=== PATIENT | male | born 2000 | race Caucasian/White ===

== ENCOUNTER 2019-02-14 06:09 | Day surgery (SDC) | payer OTHER ==
[2019-02-13 14:53] VITALS: BMI 33.9
[~2019-02-14] VITALS: Ht 177.8 cm; Wt 107.2 kg
[2019-02-14] VITALS (11 sets, daily range): BP systolic 120–144; BP diastolic 65–79; PULSE 62–83; RESP 13–20; Ht 177.8 cm; Wt 107.2 kg
[2019-02-14] MEDS ORDERED: CEFAZOLIN 2 GM/50 ML (PMX) 50 ML IVPB SCH (06:30)
[2019-02-14] MEDS ORDERED: LACTATED RINGER'S 1,000 ML IV SCH (07:00)
--- NOTE | 2019-02-14 07:29 | PREAC ---
Date/Time of Note Date/Time of Note DATE: 02/14/19 TIME: 07:28 Anesthesia Eval and Record Evaluation Time Pre-Procedure Interview DATE: 02/14/19 TIME: 07:28 Age 18 Sex male NPO: 8 hrs Preoperative diagnosis Right hand mass Planned procedure Excision of mass Past Medical History Past Medical History: Includes GI: Obesity Surgery & Anesthesia Issues No known issue Meds Anticoagulation: No Beta Enma within 24 hr: No Reason Beta Enma not given: Pt. not on B-Enma No Active Prescriptions or Reported Meds Current Medications Cefazolin Sodium/ Dextrose 50 ml @ 100 mls/hr PREOP IVPB ; Start 02/14/19 at 06:30; Stop 02/14/19 at 16:00 Lactated Ringer's 1,000 ml @ 20 mls/hr Q24H IV Last administered on 02/14/19at 07:17; Admin Dose 20 MLS/HR; Start 02/14/19 at 07:00 Meds reviewed: Yes Allergies Coded Allergies: No Known Allergy (Unverified , 02/14/19) Allergies Reviewed: Yes Labs/Studies Labs Reviewed: Reviewed by anesthesiologist test: N/A Pre-procedure Exam Last vitals Vital Signs Date Temp Pulse Resp B/P (MAP) Pulse Ox O2 O2 Flow FiO2 Time Delivery Rate 02/14/19 83 20 140/70 97 06:58 (93) Airway: Adequate mouth opening Mallampati: Mallampati II Teeth: Normal Lung: Normal Heart: Normal ASA Physical Status ASA physical status: 2 Emergency: None Planned Anesthetic General/MAC: MAC Planned Pain Management Parenteral pain med Pre-operative Attestations Prior to commencing anesthesia and surgery, the patient was re-evaluated, there was verification of: *The patient's identity *The results of appropriate recent lab work and preoperative vital signs *The above evaluation not changing prior to induction *Anesthetic plan, risk benefits, alternative and complications discussed with patient/family; questions answered; patient/family understands, accepts and wishes to proceed. HARLAN FIELD MD Feb 14, 2019 07:29
[2019-02-14] MEDS ORDERED: BUPIVACAINE 0.25% (MPF) 30 ML INJ ONE (08:10)
[2019-02-14] MEDS ORDERED: PROPOFOL 0 ML ONE (08:17)
[2019-02-14] MEDS ORDERED: MIDAZOLAM 1 MG/ML 2 ML INJ ONE (08:19)
[2019-02-14] MEDS ORDERED: FENTAnyl 50 MCG/ML VIAL ONE (08:19)
--- NOTE | 2019-02-14 08:54 | OPR ---
Date/Time of Note Date/Time of Note DATE: 02/14/19 TIME: 08:47 Operative Report Preoperative Diagnosis Right thenar hand mass Postoperative Diagnosis Right thenar hand mass Operation/Procedure Performed Right thenar hand mass excision Surgeon see signature line Academic Services Coordinator None Anesthesia Type: MAC Anesthesiologist: HARLAN FIELD MD Estimated Blood Loss: minimal Transfusion none Specimen hand mass Grafts/Implants none Complications none Pt Condition Post Procedure: stable Disposition: PACU Indications Patient is a 18-year-old male who has a right thenar hand mass for 6 months. He denies any trauma. He elects to get the mass excised. We discussed that this could be either a inclusion cyst or other benign mass. He understands the risks of surgery which include but are not limited to those infection, pain, bleeding, neurovascular injury, stiffness, recurrence and other anesthesia related risks. He elects to proceed. Procedure Description Patient was identified in preoperative holding area. Upper extremity was marked. He was brought back to operating room. He is placed supine light IV sedation was administered. A nonsterile tourniquet was applied to the right arm. Timeout was performed indicating correct patient site and procedure. Local injection of 0.25% Marcaine was injected in the thumb for a local block. The right arm was then prepped and draped in usual sterile fashion. Arm was exsanguinated Esmarch and tourniquet was elevated to 250 minutes mercury. A longitudinal incision was established over the mass which was approximately 1 x 1 cm. Skin was incised sharply. Skin flaps were bluntly elevated. A round soft tissue mass was encountered. It did not look like a cyst. This was carefully dissected free from the surrounding soft tissue. There was no stalk visualized. The mass was shelled out fairly easily. It was then set aside for pathology for permanent analysis. The wound was then irrigated. Tourniquet was released. Hemostasis was achieved with Bovie cautery. Skin was closed with interrupted 5-0 nylon suture. The wound was dressed with Adaptic, 4 x 4 gauze, Julien and Johnny bandage. There is brisk capillary refill and all sponge and instrument counts were correct and the case. Patient was awoken from anesthesia and taken to PACU stable condition. Plan: Sutures will be removed at two weeks. He will begin immediate hand range of motion. MAC YBARRA MD Feb 14, 2019 08:54
[2019-02-14] MEDS ORDERED: MEPERIDINE 25 MG INJ IV PRN (09:00)
[2019-02-14] MEDS ORDERED: METOCLOPRAMIDE 10 MG INJ IV PRN (09:00)
[2019-02-14] MEDS ORDERED: MIDAZOLAM 1 MG/ML 2 ML INJ IV PRN (09:00)
[2019-02-14] MEDS ORDERED: ONDANSETRON 4 MG INJ IV PRN (09:00)
[2019-02-14] MEDS ORDERED: OXYCODONE/ACETAMINOPHEN (5/325) TAB PO PRN ×2 (09:00)
[2019-02-14] MEDS ORDERED: DIPHENHYDRAMINE 50 MG INJ IV PRN (09:00)
[2019-02-14] MEDS ORDERED: FENTAnyl 50 MCG/ML VIAL IV PRN ×3 (09:00)
--- NOTE | 2019-02-14 09:55 | PAC ---
Date/Time of Note Date/Time of Note DATE: 02/14/19 TIME: 09:55 Post-Anesthesia Notes Post-Anesthesia Note Last documented vital signs Vital Signs Date Temp Pulse Resp B/P (MAP) Pulse Ox O2 O2 Flow FiO2 Time Delivery Rate 02/14/19 97.6 62 16 131/75 99 09:38 (93) 02/14/19 Room Air 09:26 Activity: WNL Respiratory function: WNL Cardiovascular function: WNL Mental status: Baseline Pain reasonably controlled: Yes Hydration appropriate: Yes Nausea/Vomiting absent: Yes HARLAN FIELD MD Feb 14, 2019 09:55
== END 2019-02-14 10:04 | disposition home or self-care (01) ==
LOC: SDS 06:09
PROVIDERS: ATTEND Orthopaedic Surgery
DX: D21.11 Benign neoplasm of connective and other soft tissue of right upper limb, including shoulder (principal)
CPT/HCPCS: 26111; 80048; 88307; J0690; J2250; J3010; Z7512; Z7610